=== PATIENT | male | born 1965 | race Two or more races ===

== ENCOUNTER 2024-12-18 11:26 | Emergency (ER) | payer MEDICAID ==
[~2024-12-18] VITALS: Ht 167.6 cm; Wt 67.0 kg
[2024-12-18 11:27] VITALS: O2SAT 99
[2024-12-18] MEDS ORDERED: OFLO5DRO4 LEFT EAR (12:14)
[2024-12-18] MEDS ORDERED: ISOP30DR11 LEFT EAR (12:14)
[2024-12-18 13:03] VITALS: BP 124/72; PULSE 70; RESP 15; TEMP 37.1; O2SAT 99
== END 2024-12-18 13:05 | disposition home or self-care (01) ==
LOC: ER 11:26
DX: H66.92 Otitis media, unspecified, left ear (principal); Z79.899 Other long term (current) drug therapy
CPT/HCPCS: 99283